=== PATIENT | male | born 1955 | race Caucasian/White ===

== ENCOUNTER 2017-08-04 08:20 | Emergency (ER) | payer OTHER ==
[~2017-08-04] VITALS: Ht 172.7 cm; Wt 65.9 kg
[~2017-08-04 08:20] MED LIST: BUPR-93 PO; GABA250S5 PO; QUET50TA PO
[2017-08-04 08:45] LABS: GLUCOSE, URINE (UA) NEGATIVE (NEGATIVE); KETONES,URINE NEGATIVE (NEGATIVE); LEUKOCYTE ESTERASE ,URINE NEGATIVE (NEGATIVE); OCCULT BLOOD,URINE NEGATIVE (NEGATIVE); PH,URINE 6.5 (5.0-8.0); PROTEIN,URINE NEGATIVE (NEGATIVE)
[2017-08-04 08:47] LABS: APPEARANCE,URINE CLEAR (CLEAR)
[2017-08-04 08:49] LABS: RBC,URINE None Seen /HPF (0-2); SQUAMOUS EPITHELIAL CELL,UR Rare /LPF (None Seen); WBC,URINE 0-2 /HPF (0-5)
[2017-08-04 08:56] VITALS: BP 139/95
[2017-08-04 08:58] LABS: BASOPHILS % (AUTO) 0.6 % (0.0-2.0); EOSINOPHILS % (AUTO) 1.7 % (1.0-6.0); HEMATOCRIT 37.1 % (41-53); HEMOGLOBIN 12.7 g/dL (13.5-17.5); LYMPHOCYTES # (AUTO) 2.1 K/uL (1.0-4.8); LYMPHOCYTES % (AUTO) 33.9 % (22.0-44.0); MEAN CORPUSCULAR HEMOGLOBIN 34.2 pg (26.0-34.0); MEAN CORPUSCULAR HGB CONC 34.4 G/dL (31.0-37.0); MEAN CORPUSCULAR VOLUME 100 fL (80-100); MONOCYTES # (AUTO) 0.8 K/uL (0.1-1.0); MONOCYTES % (AUTO) 13.3 % (2.0-9.0); NEUTROPHILS # (AUTO) 3.1 K/uL (1.8-7.7); NEUTROPHILS % (AUTO) 50.5 % (40.0-70.0); PLATELET COUNT (AUTO) 182 K/uL (150-450); RED BLOOD CELL COUNT(AUTO) 3.73 MIL/uL (4.50-5.90); RED CELL DISTRIBUTION WIDTH 13.7 % (11.5-14.5); WHITE BLOOD COUNT (AUTO) 6.1 K/uL (4.5-11.0)
[2017-08-04 09:08] LABS: ANION GAP 4 mmol/L (8-16); CALCIUM, TOTAL 8.9 mg/dL (8.8-10.5); CARBON DIOXIDE 33 mmol/L (22-29); CHLORIDE 104 mmol/L (98-107); CREATININE 0.93 mg/dL (0.60-1.30); GLOMERULAR FILTR. RATE CALC > 60 mL/min (>60); POTASSIUM 3.1 mmol/L (3.5-5.1); SODIUM SERUM 141 mmol/L (136-145); UREA NITROGEN, BLOOD 13 mg/dL (7-18)
== END 2017-08-04 09:48 | disposition home or self-care (01) ==
LOC: EMS 08:22
DX: B37.0 Candidal stomatitis (principal); J44.9 Chronic obstructive pulmonary disease, unspecified; F17.210 Nicotine dependence, cigarettes, uncomplicated; I10 Essential (primary) hypertension; I25.2 Old myocardial infarction; Z86.73 Personal history of transient ischemic attack (TIA), and cerebral infarction without residual deficits
CPT/HCPCS: 99284

== ENCOUNTER 2017-08-09 09:46 | Emergency (ER) | payer OTHER ==
[~2017-08-09] VITALS: Ht 172.7 cm; Wt 68.2 kg
[2017-08-09] MEDS ORDERED: MULT-700 PO (10:05)
[2017-08-09] MEDS ORDERED: ALBUTEROL SULFATE 5 MG/ML 20 ML NEB SOLN [BULK] NEB ONE (10:30)
[2017-08-09] MEDS ORDERED: IPRATROPIUM BROMIDE 0.5 MG/2.5 ML NEB SOLUTION NEB ONE (10:30)
[2017-08-09] MEDS ORDERED: PredniSONE 20 MG TABLET PO ONE (10:45)
[2017-08-09] MEDS ORDERED: HYDROCORTISONE 0.5% 30 GM OINTMENT TP ONE (10:45)
[2017-08-09] MEDS ORDERED: DOXYCYCLINE 100 MG CAPSULE PO ONE (10:45)
[2017-08-09 10:49] LABS: BASOPHILS % (AUTO) 0.3 % (0.0-2.0); EOSINOPHILS % (AUTO) 1.4 % (1.0-6.0); HEMATOCRIT 40.4 % (41-53); HEMOGLOBIN 13.9 g/dL (13.5-17.5); LYMPHOCYTES # (AUTO) 1.5 K/uL (1.0-4.8); LYMPHOCYTES % (AUTO) 18.3 % (22.0-44.0); MEAN CORPUSCULAR HGB CONC 34.3 G/dL (31.0-37.0); MEAN CORPUSCULAR VOLUME 99 fL (80-100); MONOCYTES # (AUTO) 0.7 K/uL (0.1-1.0); MONOCYTES % (AUTO) 8.6 % (2.0-9.0); NEUTROPHILS # (AUTO) 5.9 K/uL (1.8-7.7); NEUTROPHILS % (AUTO) 71.4 % (40.0-70.0); PLATELET COUNT (AUTO) 153 K/uL (150-450); RED BLOOD CELL COUNT(AUTO) 4.08 MIL/uL (4.50-5.90); WHITE BLOOD COUNT (AUTO) 8.2 K/uL (4.5-11.0)
[2017-08-09 10:57] LABS: ANION GAP 8 mmol/L (8-16); CALCIUM, TOTAL 9.1 mg/dL (8.8-10.5); CARBON DIOXIDE 28 mmol/L (22-29); CHLORIDE 103 mmol/L (98-107); CREATININE 0.97 mg/dL (0.60-1.30); GLOMERULAR FILTR. RATE CALC > 60 mL/min (>60); POTASSIUM 3.8 mmol/L (3.5-5.1); SODIUM SERUM 139 mmol/L (136-145); UREA NITROGEN, BLOOD 15 mg/dL (7-18)
[2017-08-09 11:03] LABS: ALANINE AMINOTRANSFERASE 21 U/L (12-78); ALBUMIN 3.3 g/dL (3.4-5.0); ASPARTATE AMINOTRANSFERASE 17 U/L (15-37); BILIRUBIN,TOTAL 0.4 mg/dL (0.1-1.0); TOTAL PROTEIN, SERUM 8.2 g/dL (6.4-8.2)
[2017-08-09 11:40] VITALS: BP 113/65
[2017-08-09] MEDS ORDERED: PERMETHRIN 1% 60 ML LOTION TP ONE (12:45)
== END 2017-08-09 13:02 | disposition home or self-care (01) ==
LOC: EMS 09:48
DX: S80.862A Insect bite (nonvenomous), left lower leg, initial encounter (principal); S80.861A Insect bite (nonvenomous), right lower leg, initial encounter; S60.562A Insect bite (nonvenomous) of left hand, initial encounter; S60.561A Insect bite (nonvenomous) of right hand, initial encounter; J44.1 Chronic obstructive pulmonary disease with (acute) exacerbation; F19.10 Other psychoactive substance abuse, uncomplicated; I10 Essential (primary) hypertension; I25.2 Old myocardial infarction; E78.00 Pure hypercholesterolemia, unspecified; Z95.1 Presence of aortocoronary bypass graft; F17.210 Nicotine dependence, cigarettes, uncomplicated; W57.XXXA Bitten or stung by nonvenomous insect and other nonvenomous arthropods, initial encounter; Y93.89 Activity, other specified; Y92.89 Other specified places as the place of occurrence of the external cause; Y99.8 Other external cause status
CPT/HCPCS: 36415; 71020; 80053; 85025; 99285; 99406; J7512; J7611; 94640

== ENCOUNTER 2017-08-14 13:05 | Emergency (ER) | payer OTHER ==
[~2017-08-14] VITALS: Ht 172.7 cm; Wt 68.2 kg
[~2017-08-14 13:05] MED LIST changes: +MULT-700 PO
[2017-08-14 13:36] VITALS: BP 111/71
[2017-08-14] MEDS ORDERED: HYDROCODONE/ACETAMINOPHEN 5-325 MG TABLET PO ONE (14:15)
== END 2017-08-14 14:39 | disposition home or self-care (01) ==
LOC: EMS 13:06
DX: R21 Rash and other nonspecific skin eruption (principal); J44.9 Chronic obstructive pulmonary disease, unspecified; E78.00 Pure hypercholesterolemia, unspecified; I10 Essential (primary) hypertension; I25.2 Old myocardial infarction; F17.210 Nicotine dependence, cigarettes, uncomplicated; Z86.73 Personal history of transient ischemic attack (TIA), and cerebral infarction without residual deficits; Z95.1 Presence of aortocoronary bypass graft
CPT/HCPCS: 99282

== ENCOUNTER 2018-10-15 21:03 | Emergency (ER) | payer MEDICARE, OTHER ==
[~2018-10-15] VITALS: Ht 172.7 cm; Wt 75.0 kg
[2018-10-15 21:40] VITALS: BP 123/71
[2018-10-15] MEDS ORDERED: IBUPROFEN 800 MG TABLET PO ONE (22:00)
[2018-10-15] MEDS ORDERED: DiphenhydrAMINE HCL 25 MG CAPSULE PO ONE (22:00)
== END 2018-10-15 22:15 | disposition home or self-care (01) ==
LOC: EMS 21:04
DX: B86 Scabies (principal); M54.5 Low back pain; F17.210 Nicotine dependence, cigarettes, uncomplicated; F12.90 Cannabis use, unspecified, uncomplicated; F15.90 Other stimulant use, unspecified, uncomplicated; E78.00 Pure hypercholesterolemia, unspecified; I10 Essential (primary) hypertension; J44.9 Chronic obstructive pulmonary disease, unspecified; Z79.899 Other long term (current) drug therapy
CPT/HCPCS: 99406

== ENCOUNTER 2019-05-17 22:46 | Emergency (ER) | payer MEDICARE, OTHER ==
[~2019-05-17] VITALS: Ht 172.7 cm; Wt 68.2 kg
[~2019-05-17 22:46] MED LIST changes: +ASPI81TA39 PO; +ATOR10TA69 PO; +GABA-531 PO; -GABA250S5 PO; +QUET100T PO; -QUET50TA PO
[2019-05-18 01:13] VITALS: BP 142/88
== END 2019-05-18 01:44 | disposition home or self-care (01) ==
LOC: EMS 22:49
DX: L30.9 Dermatitis, unspecified (principal); I10 Essential (primary) hypertension; E78.00 Pure hypercholesterolemia, unspecified; J44.9 Chronic obstructive pulmonary disease, unspecified; F31.9 Bipolar disorder, unspecified; I25.2 Old myocardial infarction; F12.90 Cannabis use, unspecified, uncomplicated; F15.90 Other stimulant use, unspecified, uncomplicated; F17.210 Nicotine dependence, cigarettes, uncomplicated; Z79.82 Long term (current) use of aspirin; Z79.899 Other long term (current) drug therapy; Z59.0 Homelessness
CPT/HCPCS: 99406

== ENCOUNTER 2019-10-06 10:35 | Emergency (ER) | payer MEDICARE, OTHER ==
[~2019-10-06] VITALS: Ht 162.6 cm; Wt 61.4 kg
[2019-10-06 11:18] VITALS: BP 137/81
== END 2019-10-06 11:51 | disposition home or self-care (01) ==
LOC: EMS 10:36
DX: L24.9 Irritant contact dermatitis, unspecified cause (principal); B86 Scabies; J44.9 Chronic obstructive pulmonary disease, unspecified; F31.9 Bipolar disorder, unspecified; I10 Essential (primary) hypertension; E78.00 Pure hypercholesterolemia, unspecified; I25.2 Old myocardial infarction; F17.210 Nicotine dependence, cigarettes, uncomplicated; F12.90 Cannabis use, unspecified, uncomplicated; F19.90 Other psychoactive substance use, unspecified, uncomplicated; Z86.73 Personal history of transient ischemic attack (TIA), and cerebral infarction without residual deficits
CPT/HCPCS: 99406

== ENCOUNTER 2019-10-21 11:19 | Emergency (ER) | payer OTHER ==
[~2019-10-21] VITALS: Ht 167.6 cm; Wt 71.8 kg
[2019-10-21 13:50] VITALS: BP 123/77
== END 2019-10-21 13:53 | disposition home or self-care (01) ==
LOC: EMS 11:22
DX: B86 Scabies (principal); E78.00 Pure hypercholesterolemia, unspecified; I10 Essential (primary) hypertension; I25.2 Old myocardial infarction; J44.9 Chronic obstructive pulmonary disease, unspecified; K74.60 Unspecified cirrhosis of liver; F12.90 Cannabis use, unspecified, uncomplicated; F15.90 Other stimulant use, unspecified, uncomplicated; Z86.73 Personal history of transient ischemic attack (TIA), and cerebral infarction without residual deficits; Z95.1 Presence of aortocoronary bypass graft; Z98.890 Other specified postprocedural states; Z95.5 Presence of coronary angioplasty implant and graft

== ENCOUNTER 2019-12-05 13:59 | Emergency (ER) | payer OTHER ==
[~2019-12-05] VITALS: Ht 172.7 cm; Wt 68.0 kg
[2019-12-05] MEDS ORDERED: PERMETHRIN 5% 60 GM CREAM TP ONE (15:15)
[2019-12-05] MEDS ORDERED: FLUORESCEIN SODIUM 1 MG STRIP OU ONE (15:15)
[2019-12-05] MEDS ORDERED: PROPARACAINE HCL 0.5% 15 ML OPHTHALMIC SOLUTION OU ONE (15:15)
[2019-12-05] MEDS ORDERED: NEOMYCIN/BACITRACIN/POLYMYXIN/HYDROCORT 3.5 GM OPHTHALMIC OINTMENT OD ONE (15:45)
[2019-12-05 16:27] VITALS: BP 122/69
== END 2019-12-05 17:21 | disposition home or self-care (01) ==
LOC: EMS 14:01
DX: S05.01XA Injury of conjunctiva and corneal abrasion without foreign body, right eye, initial encounter (principal); B86 Scabies; E78.00 Pure hypercholesterolemia, unspecified; I10 Essential (primary) hypertension; I25.2 Old myocardial infarction; J44.9 Chronic obstructive pulmonary disease, unspecified; K74.60 Unspecified cirrhosis of liver; F17.210 Nicotine dependence, cigarettes, uncomplicated; F31.9 Bipolar disorder, unspecified; F12.90 Cannabis use, unspecified, uncomplicated; F15.90 Other stimulant use, unspecified, uncomplicated; Z95.1 Presence of aortocoronary bypass graft; Z86.73 Personal history of transient ischemic attack (TIA), and cerebral infarction without residual deficits; Z95.5 Presence of coronary angioplasty implant and graft; Z79.899 Other long term (current) drug therapy; Z98.890 Other specified postprocedural states
CPT/HCPCS: 99406

== ENCOUNTER 2020-03-12 15:46 | Emergency (ER) | payer OTHER ==
[~2020-03-12] VITALS: Ht 170.2 cm; Wt 68.2 kg
[2020-03-12 18:03] VITALS: BP 102/76
== END 2020-03-12 18:05 | disposition home or self-care (01) ==
LOC: EMS 15:52
DX: B85.3 Phthiriasis (principal); J44.9 Chronic obstructive pulmonary disease, unspecified; E78.00 Pure hypercholesterolemia, unspecified; I10 Essential (primary) hypertension; F31.9 Bipolar disorder, unspecified; I25.2 Old myocardial infarction; F17.210 Nicotine dependence, cigarettes, uncomplicated; F12.90 Cannabis use, unspecified, uncomplicated; F19.90 Other psychoactive substance use, unspecified, uncomplicated; Z86.73 Personal history of transient ischemic attack (TIA), and cerebral infarction without residual deficits

== ENCOUNTER 2020-04-28 14:24 | Emergency (ER) | payer OTHER ==
[~2020-04-28] VITALS: Ht 167.6 cm; Wt 68.2 kg
[2020-04-28 14:26] VITALS: BP 118/72
[2020-04-28] MEDS ORDERED: ATOR20TA86 PO (14:29)
[2020-04-28] MEDS ORDERED: ASPI-728 PO (14:29)
[2020-04-28] MEDS ORDERED: QUET25TA PO (14:29)
== END 2020-04-28 15:15 | disposition home or self-care (01) ==
LOC: EMS 14:25
DX: B86 Scabies (principal); F17.210 Nicotine dependence, cigarettes, uncomplicated; F15.90 Other stimulant use, unspecified, uncomplicated; I11.9 Hypertensive heart disease without heart failure; F31.9 Bipolar disorder, unspecified

== ENCOUNTER 2020-06-21 00:11 | Emergency (ER) | payer OTHER ==
[~2020-06-21] VITALS: Ht 172.7 cm; Wt 68.2 kg
[~2020-06-21 00:11] MED LIST changes: +ASPI-728 PO; -ASPI81TA39 PO; -ATOR10TA69 PO; +ATOR20TA86 PO; -BUPR-93 PO; -GABA-531 PO; -MULT-700 PO; -QUET100T PO; +QUET25TA PO
[2020-06-21 01:32] VITALS: BP 135/75
[2020-06-21] MEDS ORDERED: SULFAMETHOX/TRIMETH DS 800-160 MG/TABLET PO ONE (02:00)
[2020-06-21] MEDS ORDERED: IBUPROFEN 800 MG TABLET PO ONE (02:00)
== END 2020-06-21 02:40 | disposition home or self-care (01) ==
LOC: EMS 00:11
DX: L02.01 Cutaneous abscess of face (principal); B86 Scabies; J44.9 Chronic obstructive pulmonary disease, unspecified; E78.00 Pure hypercholesterolemia, unspecified; I10 Essential (primary) hypertension; I25.2 Old myocardial infarction; F17.210 Nicotine dependence, cigarettes, uncomplicated; F12.90 Cannabis use, unspecified, uncomplicated; F19.90 Other psychoactive substance use, unspecified, uncomplicated; Z86.73 Personal history of transient ischemic attack (TIA), and cerebral infarction without residual deficits; Z79.82 Long term (current) use of aspirin

== ENCOUNTER 2020-09-10 16:50 | Emergency (ER) | payer OTHER ==
[~2020-09-10] VITALS: Ht 172.7 cm; Wt 80.0 kg
[2020-09-10 16:59] VITALS: BP 116/74
[2020-09-10] MEDS ORDERED: KETOROLAC TROMETHAMINE 30 MG/ML VIAL IM ONE (17:45)
== END 2020-09-10 18:47 | disposition home or self-care (01) ==
LOC: EMS 16:50
DX: S46.912A Strain of unspecified muscle, fascia and tendon at shoulder and upper arm level, left arm, initial encounter (principal); G62.9 Polyneuropathy, unspecified; B86 Scabies; J44.9 Chronic obstructive pulmonary disease, unspecified; E78.00 Pure hypercholesterolemia, unspecified; I10 Essential (primary) hypertension; I25.2 Old myocardial infarction; F31.9 Bipolar disorder, unspecified; F17.210 Nicotine dependence, cigarettes, uncomplicated; F12.90 Cannabis use, unspecified, uncomplicated; F19.90 Other psychoactive substance use, unspecified, uncomplicated; Z79.82 Long term (current) use of aspirin; X58.XXXA Exposure to other specified factors, initial encounter; Y93.89 Activity, other specified; Y92.89 Other specified places as the place of occurrence of the external cause; Y99.8 Other external cause status
CPT/HCPCS: 96372; 99283; J1885

== ENCOUNTER 2020-10-08 07:07 | Emergency (ER) | payer OTHER ==
[~2020-10-08] VITALS: Ht 172.7 cm; Wt 68.2 kg
[2020-10-08] MEDS ORDERED: DOXYCYCLINE HYCLATE 100 MG TABLET PO ONE (08:00)
[2020-10-08] MEDS ORDERED: PERMETHRIN 5% 60 GM CREAM TP ONE (08:00)
[2020-10-08] MEDS ORDERED: ACETAMINOPHEN 500 MG TABLET PO ONE (08:00)
[2020-10-08] MEDS ORDERED: IBUPROFEN 600 MG TABLET PO ONE (08:30)
[2020-10-08] MEDS ORDERED: KETOROLAC TROMETHAMINE 30 MG/ML VIAL IM ONE (08:30)
[2020-10-08 08:36] VITALS: BP 124/60
== END 2020-10-08 08:43 | disposition home or self-care (01) ==
LOC: EMS 07:09
DX: M75.42 Impingement syndrome of left shoulder (principal); B86 Scabies; L03.114 Cellulitis of left upper limb; F31.9 Bipolar disorder, unspecified; J44.9 Chronic obstructive pulmonary disease, unspecified; E78.00 Pure hypercholesterolemia, unspecified; I25.2 Old myocardial infarction; I10 Essential (primary) hypertension; F17.210 Nicotine dependence, cigarettes, uncomplicated; F12.90 Cannabis use, unspecified, uncomplicated; F19.90 Other psychoactive substance use, unspecified, uncomplicated; Z79.82 Long term (current) use of aspirin
CPT/HCPCS: Z7502; Z7610

== ENCOUNTER 2020-11-10 14:30 | Emergency (ER) | payer OTHER ==
[~2020-11-10] VITALS: Ht 172.7 cm; Wt 68.2 kg
[2020-11-10 14:50] VITALS: BP 134/78
== END 2020-11-10 16:55 | disposition home or self-care (01) ==
LOC: EMS 14:36
DX: B86 Scabies (principal); I10 Essential (primary) hypertension; E78.00 Pure hypercholesterolemia, unspecified; F31.9 Bipolar disorder, unspecified; F17.210 Nicotine dependence, cigarettes, uncomplicated; F12.90 Cannabis use, unspecified, uncomplicated; F15.90 Other stimulant use, unspecified, uncomplicated
CPT/HCPCS: 99283; Z7502

== ENCOUNTER 2020-11-19 20:48 | Emergency (ER) | payer OTHER ==
[~2020-11-19] VITALS: Ht 172.7 cm; Wt 68.2 kg
[2020-11-20] MEDS ORDERED: DOXYCYCLINE HYCLATE 100 MG TABLET PO ONE (01:15)
[2020-11-20] MEDS ORDERED: IBUPROFEN 600 MG TABLET PO ONE (01:15)
[2020-11-20] MEDS ORDERED: ACETAMINOPHEN 500 MG TABLET PO ONE (01:15)
[2020-11-20] MEDS ORDERED: PERMETHRIN 5% 60 GM CREAM TP ONE (01:15)
[2020-11-20 03:40] VITALS: BP 127/77
== END 2020-11-20 04:20 | disposition home or self-care (01) ==
LOC: EMS 20:48
DX: L03.811 Cellulitis of head [any part, except face] (principal); I10 Essential (primary) hypertension; I25.2 Old myocardial infarction; J44.9 Chronic obstructive pulmonary disease, unspecified; F17.210 Nicotine dependence, cigarettes, uncomplicated; F12.90 Cannabis use, unspecified, uncomplicated; F15.90 Other stimulant use, unspecified, uncomplicated
CPT/HCPCS: Z7502; Z7610

== ENCOUNTER 2021-01-10 19:31 | Emergency (ER) | payer OTHER ==
[~2021-01-10] VITALS: Ht 172.7 cm; Wt 61.4 kg
[2021-01-10 19:43] VITALS: BP 126/71
== END 2021-01-10 20:08 | disposition home or self-care (01) ==
LOC: EMS 19:31
DX: R21 Rash and other nonspecific skin eruption (principal); I10 Essential (primary) hypertension; F31.9 Bipolar disorder, unspecified; J44.9 Chronic obstructive pulmonary disease, unspecified; E78.00 Pure hypercholesterolemia, unspecified; I25.2 Old myocardial infarction; F17.210 Nicotine dependence, cigarettes, uncomplicated; F12.90 Cannabis use, unspecified, uncomplicated; F19.90 Other psychoactive substance use, unspecified, uncomplicated
CPT/HCPCS: 99282; Z7502

== ENCOUNTER 2021-06-14 06:36 | Emergency (ER) | payer OTHER ==
[~2021-06-14] VITALS: Ht 172.7 cm; Wt 63.6 kg
[2021-06-14 06:49] VITALS: BP 129/72
== END 2021-06-14 07:56 | disposition home or self-care (01) ==
LOC: EMS 06:42
DX: S20.361A Insect bite (nonvenomous) of right front wall of thorax, initial encounter (principal); L08.9 Local infection of the skin and subcutaneous tissue, unspecified; B86 Scabies; I10 Essential (primary) hypertension; E78.00 Pure hypercholesterolemia, unspecified; J44.9 Chronic obstructive pulmonary disease, unspecified; F31.9 Bipolar disorder, unspecified; F12.90 Cannabis use, unspecified, uncomplicated; F15.90 Other stimulant use, unspecified, uncomplicated; F17.210 Nicotine dependence, cigarettes, uncomplicated; W57.XXXA Bitten or stung by nonvenomous insect and other nonvenomous arthropods, initial encounter; Y93.89 Activity, other specified; Y92.89 Other specified places as the place of occurrence of the external cause; Y99.8 Other external cause status
CPT/HCPCS: 99283; Z7502

== ENCOUNTER 2021-09-22 15:56 | Emergency (ER) | payer OTHER ==
[~2021-09-22] VITALS: Ht 172.7 cm; Wt 65.9 kg
[2021-09-22 15:59] VITALS: BP 116/85
== END 2021-09-22 17:45 | disposition home or self-care (01) ==
LOC: EMS 15:56
DX: B86 Scabies (principal); I10 Essential (primary) hypertension; F31.9 Bipolar disorder, unspecified; F17.210 Nicotine dependence, cigarettes, uncomplicated; F12.90 Cannabis use, unspecified, uncomplicated
CPT/HCPCS: 99282; Z7502

== ENCOUNTER 2021-10-04 13:52 | Emergency (ER) | payer OTHER ==
[~2021-10-04] VITALS: Ht 172.7 cm; Wt 68.2 kg
[2021-10-04] MEDS ORDERED: IBUPROFEN 600 MG TABLET PO ONE (14:45)
[2021-10-04 15:42] VITALS: BP 109/57
== END 2021-10-04 15:46 | disposition home or self-care (01) ==
LOC: EMS 13:55
DX: G89.18 Other acute postprocedural pain (principal); I25.2 Old myocardial infarction; J44.9 Chronic obstructive pulmonary disease, unspecified; F31.9 Bipolar disorder, unspecified; I10 Essential (primary) hypertension; E78.00 Pure hypercholesterolemia, unspecified
CPT/HCPCS: 99282; Z7502; Z7610

== ENCOUNTER 2021-12-10 15:10 | Emergency (ER) | payer OTHER ==
[~2021-12-10] VITALS: Ht 172.7 cm; Wt 68.2 kg
[2021-12-10] MEDS ORDERED: PERMETHRIN 5% 60 GM CREAM TP ONE (21:30)
[2021-12-10 21:35] VITALS: BP 126/74
[2021-12-10 21:51] LABS: COVID AG,FIA SOURCE NASAL SWAB
== END 2021-12-10 21:43 | disposition home or self-care (01) ==
LOC: EMS 15:12
DX: B86 Scabies (principal); I48.91 Unspecified atrial fibrillation; E03.9 Hypothyroidism, unspecified; F17.210 Nicotine dependence, cigarettes, uncomplicated; F12.90 Cannabis use, unspecified, uncomplicated; Z20.822 Contact with and (suspected) exposure to COVID-19
CPT/HCPCS: 87426; 99283; C9803

== ENCOUNTER 2022-10-14 08:07 | Emergency (ER) | payer OTHER ==
[~2022-10-14] VITALS: Ht 172.7 cm; Wt 72.7 kg
[2022-10-14 08:39] VITALS: BP 122/63
[2022-10-14] MEDS ORDERED: HYDR-4723 PO (09:04)
[2022-10-14] MEDS ORDERED: POLY238P PO (09:04)
== END 2022-10-14 09:36 | disposition home or self-care (01) ==
LOC: EMS 08:10
DX: L30.9 Dermatitis, unspecified (principal); I48.91 Unspecified atrial fibrillation; E03.9 Hypothyroidism, unspecified; K74.60 Unspecified cirrhosis of liver; F17.210 Nicotine dependence, cigarettes, uncomplicated; F12.90 Cannabis use, unspecified, uncomplicated; Z98.890 Other specified postprocedural states
CPT/HCPCS: 99283; Z7502

== ENCOUNTER 2022-11-16 10:45 | Emergency (ER) | payer OTHER ==
[~2022-11-16] VITALS: Ht 170.2 cm; Wt 68.2 kg
[~2022-11-16 10:45] MED LIST changes: -ASPI-728 PO; -ATOR20TA86 PO; +HYDR-4723 PO; +POLY238P PO; -QUET25TA PO
[2022-11-16 12:12] LABS: COVID AG,FIA SOURCE NASAL SWAB
[2022-11-16] MEDS ORDERED: IBUPROFEN 600 MG TABLET PO ONE (13:00)
[2022-11-16] MEDS ORDERED: CIPROFLOXACIN HCL 250 MG TABLET PO ONE (13:00)
[2022-11-16] MEDS ORDERED: ALBUTEROL SULFATE HFA 90 MCG/PUFF 8 GM INHALER IH ONE (13:00)
[2022-11-16 13:06] LABS: INFLUENZA TYPE A NEGATIVE FOR TYPE A (NEGATIVE); INFLUENZA TYPE B NEGATIVE FOR TYPE B (NEGATIVE)
[2022-11-16] MEDS ORDERED: AZITHROMYCIN 500 MG TABLET PO ONE (14:15)
[2022-11-16 14:18] VITALS: BP 104/42
[2022-11-16] MEDS ORDERED: CIPR500T10 PO (14:21)
[2022-11-16] MEDS ORDERED: AZIT250T9 PO (14:21)
== END 2022-11-16 14:39 | disposition home or self-care (01) ==
LOC: EMS 10:49
DX: J44.1 Chronic obstructive pulmonary disease with (acute) exacerbation (principal); G89.29 Other chronic pain; E03.9 Hypothyroidism, unspecified; F12.90 Cannabis use, unspecified, uncomplicated; F17.210 Nicotine dependence, cigarettes, uncomplicated; I48.91 Unspecified atrial fibrillation; K74.60 Unspecified cirrhosis of liver; Z98.890 Other specified postprocedural states; Z20.822 Contact with and (suspected) exposure to COVID-19
CPT/HCPCS: 99285; 71046; 87426; 99406; 87804; 94640; Q9967; J3535

== ENCOUNTER 2023-06-27 20:53 | Emergency (ER) | payer OTHER ==
[~2023-06-27] VITALS: Ht 172.7 cm; Wt 63.6 kg
[~2023-06-27 20:53] MED LIST changes: +CIPR500T10 PO
[2023-06-27 21:15] VITALS: BP 103/55; PULSE 110; RESP 16; TEMP 98.8
[2023-06-27] MEDS ORDERED: METF-1211 PO (21:18)
[2023-06-27 21:36] LABS: GLUCOMETER DEV NAME(LOC) ERT.5
[2023-06-27] MEDS ORDERED: PERM60CR19 TP (22:55)
[2023-06-27] MEDS ORDERED: DiphenhydrAMINE HCL 25 MG CAPSULE PO ONE (23:00)
[2023-06-27] MEDS ORDERED: PERMETHRIN 5% 60 GM CREAM TP ONE (23:00)
== END 2023-06-27 23:21 | disposition home or self-care (01) ==
LOC: EMS 20:56
DX: B85.2 Pediculosis, unspecified (principal); E11.9 Type 2 diabetes mellitus without complications; E03.9 Hypothyroidism, unspecified; F12.90 Cannabis use, unspecified, uncomplicated; F17.210 Nicotine dependence, cigarettes, uncomplicated; Z79.899 Other long term (current) drug therapy
CPT/HCPCS: 82962; 99283

== ENCOUNTER 2023-12-17 12:17 | Emergency (ER) | payer OTHER ==
[~2023-12-17] VITALS: Ht 172.7 cm; Wt 61.4 kg
[~2023-12-17 12:17] MED LIST changes: -CIPR500T10 PO; -HYDR-4723 PO; +METF-1211 PO; +PERM60CR19 TP
[2023-12-17 12:37] VITALS: BP 105/53; PULSE 109; RESP 20; TEMP 98
[2023-12-17 13:01] LABS: GLUCOMETER DEV NAME(LOC) ER.6; GLUCOSE,POINT OF CARE 124 MG/DL (70-110)
[2023-12-17] MEDS ORDERED: HYDR-4723 PO ×2 (14:20→14:56)
[2023-12-17] MEDS ORDERED: DIPH50CA37 PO ×2 (14:20→14:56)
[2023-12-17] MEDS ORDERED: GUAIFDM PO ×2 (14:20→14:56)
[2023-12-17] MEDS ORDERED: PERM60CR19 TP ×2 (14:20→14:56)
== END 2023-12-17 15:17 | disposition home or self-care (01) ==
LOC: EMS 12:39
DX: J02.8 Acute pharyngitis due to other specified organisms (principal); C34.91 Malignant neoplasm of unspecified part of right bronchus or lung; R21 Rash and other nonspecific skin eruption; E11.9 Type 2 diabetes mellitus without complications; E03.9 Hypothyroidism, unspecified; F17.210 Nicotine dependence, cigarettes, uncomplicated; F12.90 Cannabis use, unspecified, uncomplicated; Z98.890 Other specified postprocedural states
CPT/HCPCS: 82962; 87430; 99283

== ENCOUNTER 2024-01-12 13:20 | Emergency (ER) | payer OTHER ==
[~2024-01-12] VITALS: Ht 180.3 cm; Wt 72.7 kg
[~2024-01-12 13:20] MED LIST changes: +DIPH50CA37 PO; +GUAIFDM PO; +HYDR-4723 PO; -POLY238P PO
[2024-01-12 13:34] VITALS: TEMP 98.6
[2024-01-12] MEDS ORDERED: LISI5TAB21 PO (13:36)
[2024-01-12] MEDS ORDERED: LEVO150T11 PO (13:36)
[2024-01-12] MEDS ORDERED: ALBU18HF12 IH (16:47)
[2024-01-12 17:15] VITALS: BP 130/86; PULSE 80; RESP 14
[2024-01-12] MEDS: PERMETHRIN 5% 60 GM CREAM TP ONE (17:18)
== END 2024-01-12 17:23 | disposition home or self-care (01) ==
LOC: EMS 13:34
DX: B86 Scabies (principal); E11.9 Type 2 diabetes mellitus without complications; E03.9 Hypothyroidism, unspecified; F17.210 Nicotine dependence, cigarettes, uncomplicated; F12.90 Cannabis use, unspecified, uncomplicated; Z98.890 Other specified postprocedural states
CPT/HCPCS: 99282; Z7502; Z7610

== ENCOUNTER 2024-03-16 13:16 | Emergency (ER) | payer OTHER ==
[~2024-03-16] VITALS: Ht 170.2 cm; Wt 80.0 kg
[~2024-03-16 13:16] MED LIST changes: +ALBU18HF12 IH; -DIPH50CA37 PO; -GUAIFDM PO; -HYDR-4723 PO; +LEVO150T11 PO; +LISI5TAB21 PO; -PERM60CR19 TP
[2024-03-16] MEDS ORDERED: ATOR40TA71 PO (13:32)
[2024-03-16] MEDS ORDERED: IPRA4AER IH (13:32)
[2024-03-16] MEDS ORDERED: HYDR-4527 PO (13:32)
[2024-03-16] MEDS ORDERED: PERM60CR4 TP (13:32)
[2024-03-16] MEDS ORDERED: NALO4SPR5 NASAL (13:32)
[2024-03-16] MEDS ORDERED: KETO120S13 TP (13:32)
[2024-03-16] MEDS ORDERED: HYDR-4061 PO (13:32)
[2024-03-16 14:43] VITALS: BP 117/78; PULSE 69; RESP 17; TEMP 98.1
[2024-03-16] MEDS: TraMADol HCL 50 MG TABLET PO ONE (14:58)
[2024-03-16] MEDS: CEPHALEXIN MONOHYDRATE 500 MG CAPSULE PO ONE (14:58)
[2024-03-16] MEDS ORDERED: CEPH-558 PO (17:02)
[2024-03-16 18:13] VITALS: BP 125/74; PULSE 65; RESP 17
== END 2024-03-16 18:15 | disposition home or self-care (01) ==
LOC: EMS 13:16
DX: K13.0 Diseases of lips (principal); E11.9 Type 2 diabetes mellitus without complications; I48.91 Unspecified atrial fibrillation; E03.9 Hypothyroidism, unspecified; F17.210 Nicotine dependence, cigarettes, uncomplicated; F12.90 Cannabis use, unspecified, uncomplicated
CPT/HCPCS: 99283

== ENCOUNTER 2024-05-19 10:45 | Emergency (ER) | payer OTHER ==
[~2024-05-19] VITALS: Ht 172.7 cm; Wt 61.4 kg
[~2024-05-19 10:45] MED LIST changes: -ALBU18HF12 IH; +ATOR40TA71 PO; +CEPH-558 PO; +HYDR-4061 PO; +HYDR-4527 PO; +IPRA4AER IH; +KETO120S13 TP; +NALO4SPR5 NASAL; +PERM60CR4 TP
[2024-05-19 10:57] VITALS: BP 103/58; PULSE 107; RESP 16; TEMP 98.1
[2024-05-19] MEDS ORDERED: AMOX-457 PO (12:11)
[2024-05-19] MEDS ORDERED: PERM60CR4 TP (12:19)
[2024-05-19] MEDS ORDERED: ACET-3385 PO (12:20)
== END 2024-05-19 12:36 | disposition home or self-care (01) ==
LOC: EMS 10:45
DX: H66.91 Otitis media, unspecified, right ear (principal); B86 Scabies; J44.9 Chronic obstructive pulmonary disease, unspecified; E11.9 Type 2 diabetes mellitus without complications; E03.9 Hypothyroidism, unspecified; F17.210 Nicotine dependence, cigarettes, uncomplicated; Z98.890 Other specified postprocedural states
CPT/HCPCS: 82962; 99283